=== PATIENT | male | born 1970 | race African-American/Black ===

== ENCOUNTER 2018-11-23 09:01 | Outpatient (CLI) | payer BC ==
--- NOTE | 2018-11-23 09:48 | ULT ---
RIGHT UPPER QUADRANT ULTRASOUND: Date: 11/23/18 INDICATION: Abnormal liver function enzymes/laboratory values. FINDINGS: There is increased echogenicity of the liver without focal mass. Low level echoes of the gallbladder are present, which may be related to sludge. There is no evidence of abnormal gallbladder wall thicke nikky. No ascites. Common duct is not visualized, as this area is obscured by persistent bowel gas georgette pite repositioning of the patient. IMPRESSION: 1. Probable gallbladder sludge. No acute gallbladder pathology. 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 2. Nonvisualization of common duct. 3. Findings indicate hepatic steatosis. POS: [facility]
== END 2018-11-23 09:02 | disposition home or self-care (01) ==
LOC: ULT 09:01
PROVIDERS: ATTEND Physician Assistant
DX: R74.8 Abnormal levels of other serum enzymes (principal); K76.0 Fatty (change of) liver, not elsewhere classified
CPT/HCPCS: 76705